=== PATIENT | male | born 1990 | race Caucasian/White ===

== ENCOUNTER 2019-08-20 11:34 | Emergency (ER) | payer OTHER ==
[~2019-08-20] VITALS: Ht 175.2 cm; Wt 59.0 kg
[2019-08-20] MEDS ORDERED: NAPROSYN500 MG PO (12:02)
== END 2019-08-20 12:16 | disposition home or self-care (01) ==
LOC: ED 11:34
DX: G56.00 Carpal tunnel syndrome, unspecified upper limb (principal)